=== PATIENT | male | born 1945 | race Hispanic/Latino ===

== ENCOUNTER 2017-10-29 07:56 | Emergency (ER) | payer OTHER ==
[2017-10-29 08:02] VITALS: RESP 20; TEMP 97.6
[2017-10-29 08:44] LABS: URINE BILIRUBIN NEGATIVE (NEGATIVE); URINE BLOOD 1+ (NEGATIVE); URINE COLOR Yellow (YELLOW); URINE GLUCOSE (UA) NORMAL (Normal); URINE KETONE NEGATIVE (NEGATIVE); URINE LEUKOCYTE ESTERASE TRACE Leu/uL (Negative); URINE PROTEIN 1+ mg/dL (NEGATIVE); URINE UROBILINOGEN NORMAL mg/dL (0.2-1.0)
[2017-10-29 09:08] LABS: RBC URINE 20 /hpf (0-3); URINE BACTERIA FEW (<OCC); WBC URINE 8 /hpf (0-5)
--- NOTE | 2017-10-29 09:21 | C.PDOC ---
History Of Present Illness 72 y/o male presents to ED with complaints of urinary frequency and dysuria for 1 week. Patient states he feels that he needs to empty his bladder hourly. Reports he has low stream for 5 years but denies having prostate evaluated. Patient denies prior history of HTN, prior history of symptoms, fever, chest pain, headache, penile discharge, testicular pain or any other complaints at this time. Time Seen by Provider: 10/29/17 08:12 Chief Complaint (Nursing): Male Genitourinary History Per: Patient History/Exam Limitations: no limitations Onset/Duration Of Symptoms: Days Current Symptoms Are (Timing): Still Present Associated Symptoms: Urinary Symptoms Past Medical History Reviewed: Historical Data, Nursing Documentation, Vital Signs Vital Signs: Last Vital Signs Temp 97.6 F 10/29/17 07:59 Pulse 84 10/29/17 10:11 Resp 20 10/29/17 10:11 BP 159/104 H 10/29/17 10:11 Pulse Ox 100 10/29/17 11:38 - Medical History PMH: No Chronic Diseases Surgical History: No Surg Hx Family History: States: No Known Family Hx - Social History Hx Alcohol Use: Yes Hx Substance Use: No - Immunization History Hx Tetanus Toxoid Vaccination: No Hx Influenza Vaccination: No Hx Pneumococcal Vaccination: No Review Of Systems Constitutional: Negative for: Fever, Chills Cardiovascular: Negative for: Chest Pain Gastrointestinal: Negative for: Nausea, Vomiting Genitourinary: Positive for: Dysuria, Frequency. Negative for: Hematuria, Penile Discharge, Penile Pain Skin: Negative for: Rash Neurological: Negative for: Dizziness Physical Exam - Physical Exam Appears: Non-toxic, No Acute Distress Skin: Normal Color, Warm, Dry, No Rash Head: Atraumatic, Normacephalic Eye(s): bilateral: Normal Inspection, EOMI Nose: Normal Oral Mucosa: Moist Neck: Normal ROM, Supple Chest: Symmetrical Cardiovascular: Rhythm Regular Respiratory: Normal Breath Sounds, No Accessory Muscle Use, No Rales, No Rhonchi , No Wheezing Gastrointestinal/Abdominal: Soft, No Tenderness, No Guarding, No Rebound Male Genital: No Testicular Tenderness, No Testicular Swelling, Other (Right Inguinal reducible hernia ; 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 Patient instructed to have strict follow up with Urology and PMD. Discussed concerns for elevated blood pressure and untreated HTN. Patient states he has bp machine at home and usually 140s/80s. Discussed with DR. Richards who agrees with plan of discharge Disposition - Disposition Referrals: Eliezer Villagomez Jr., MD [Staff Provider] - Herminia Cortés MD [Staff Provider] - Disposition: HOME/ ROUTINE Disposition Time: 09:19 Condition: STABLE Additional Instructions: Follow up with urologist in 1-2 days. Return to ER if symptoms persist or worsen. Prescriptions: Ciprofloxacin HCl [Cipro] 500 mg PO BID #28 tab Enalapril Maleate [Vasotec] 20 mg PO DAILY #14 tab Tamsulosin [Flomax] 0.4 mg PO DAILY #14 cap Instructions: Prostatitis (ED) Forms: [employer] (Estonian) - Clinical Impression Clinical Impression: Acute prostatitis, HTN (hypertension) - PA / BOW REHAIRER / Resident Statement MD/DO has reviewed & agrees with the documentation as recorded. - Scribe Statement The provider has reviewed the documentation as recorded by the Scribe Brent Ferreira All medical record entries made by the Angi were at my direction and personally dictated by me. I have reviewed the chart and agree that the record accurately reflects my personal performance of the history, physical exam, medical decision making, and the department course for this patient. I have also personally directed, reviewed, and agree with the discharge instructions and disposition.
[2017-10-29 10:12] VITALS: BP 159/104; PULSE 84
[2017-10-29 11:33] VITALS: O2SAT 100
== END 2017-10-29 10:22 | disposition home or self-care (01) ==
LOC: C.ER 07:56
DX: N41.0 Acute prostatitis (principal); I10 Essential (primary) hypertension